=== PATIENT | female | born 1980 | race Caucasian/White ===

== ENCOUNTER 2022-12-18 11:36 | Outpatient (CLI) | payer BC, SELFPAY ==
[2022-12-18 21:46] LABS: Albumin* 4.2 g/dL (3.3-5.0)
[2022-12-18 21:47] LABS: Chloride* 106 mmol/L (96-114); Potassium* 4.4 mmol/L (3.6-5.1); Sodium* 139 mmol/L (135-149)
[2022-12-18 21:49] LABS: Aspartate Amino Transferase* 24 U/L (12-35); Bilirubin Total* 0.7 mg/dL (0.1-1.5); Carbon Dioxide* 27 mmol/L (20-32); Creatinine* 0.9 mg/dL (0.5-1.5); Estimated Glomerular Filt Rate 82 ml/min
[2022-12-18 21:50] LABS: Alanine Aminotransferase* 18 U/L (4-35); Alkaline Phosphatase* 62 U/L (40-150); Blood Urea Nitrogen* 16 mg/dL (5-24); Glucose* 81 mg/dL (60-115); Lipase* 128 U/L (23-300)
== END 2022-12-18 11:37 | disposition home or self-care (01) ==
PROVIDERS: PCP Physician Assistant Medical; Visit Provider Physician Assistant Medical
DX: R10.13 Epigastric pain (principal)
CPT/HCPCS: 80053; 83690

== ENCOUNTER 2023-07-13 09:02 | Outpatient (CLI) | payer BC, SELFPAY | END 2023-07-13 09:03 | disposition home or self-care (01) | LOC: NFLDREF 14:42 | PROVIDERS: PCP Physician Assistant Medical; Referring Provider Physician Assistant Medical; Visit Provider Physician Assistant Medical | DX: Z00.00 Encounter for general adult medical examination without abnormal findings (principal); Z13.6 Encounter for screening for cardiovascular disorders; Z13.29 Encounter for screening for other suspected endocrine disorder | CPT/HCPCS: 80053; 80061; 84443 ==

== ENCOUNTER 2023-07-15 10:32 | Outpatient (CLI) | payer BC, SELFPAY ==
[2023-07-15 22:51] LABS: Chlamydia DNA Amplified* NOT DETECTED (No Detected); GC DNA Amplified* NOT DETECTED (No Detected)
== END 2023-07-15 10:33 | disposition home or self-care (01) ==
LOC: LKVREF 10:33
PROVIDERS: PCP Physician Assistant Medical; Visit Provider Physician Assistant Medical
DX: Z11.3 Encounter for screening for infections with a predominantly sexual mode of transmission (principal)
CPT/HCPCS: 87491; 87591

== ENCOUNTER 2023-08-10 07:15 | Outpatient (CLI) | payer BC, SELFPAY ==
--- NOTE | 2023-08-10 07:15 | CRLHL7_ITS ---
For Patients: As a result of the Century Cures Act, medical imaging exams and procedure reports are released immediately into your electronic medical record. You may view this report before your referring provider. If you have questions, please contact your health care provider. INDICATION: irregular menses COMPARISON: none TECHNIQUE: 2D pichardo scale and color Doppler images were acquired of the pelvis using a transabdominal and transvaginal approach. FINDINGS: Sonographic images demonstrate a normal size and smooth outer contour of the uterus. Uterus measures 8.6 cm in length by 3.5 cm in AP diameter by 4.5 cm in transverse dimension. The myometrium has a minimally heterogeneous echotexture. The endometrial lining appears normal and measures 2 mm in composite thickness. The ovaries are not visualized. There are no suspicious fluid collections within the cul-de-sac. IMPRESSION: Endometrial thickness 2 millimeters. No uterine fibroid. Dictated by Chris Nash MD @ 08/10/2023 8:26:55 AM (Electronically Signed)
== END 2023-08-10 07:16 | disposition home or self-care (01) ==
LOC: US 07:16
PROVIDERS: PCP Physician Assistant Medical; Visit Provider Physician Assistant Medical
DX: N92.6 Irregular menstruation, unspecified (principal); R93.89 Abnormal findings on diagnostic imaging of other specified body structures
CPT/HCPCS: 76830; 76856

== ENCOUNTER 2024-06-15 11:48 | Outpatient (CLI) | payer BC, SELFPAY ==
--- OUTSIDE RECORDS SUMMARY | 2024-06-15 11:52 | XMS_ITS | Clinical Summary ---
Author Organization [facility] Address [address] [address] Phone Care Team Providers Care Stationary Engineer Apprentice Name Role Phone Elsewhere, Pcp Primary Care Provider Unavailabl e Allergies No known active allergies Medications Medication Sig Dispensed Refills Start Date End Date Status buPROPion XL (Wellbutrin XL) 150 MG 24 hour extended release tablet 06/22/2020 Active desogestrel-ethinyl estradiol (Apri) 0.15-30 MG-MCG oral tablet Daily 02/16/2019 Active escitalopram (Lexapro) 20 MG tablet Take 20 mg by mouth one time a day. 04/21/2020 Active propranolol (Inderal) 60 MG tablet propranolol 60 mg tablet Active SUMAtriptan (Imitrex) 100 MG tablet sumatriptan 100 mg tablet 02/16/2018 Active SUMAtriptan (Imitrex) 50 MG tablet sumatriptan 50 mg tablet Active predniSONE (Deltasone) 10 MG tablet Take 6 pills once daily in the morning with food for 5 days, then decrease by one pill every day until off 07/31/2022 Active almotriptan (Axert) 12.5 MG tablet TAKE 1 TABLET BY MOUTH AT ONSET OF HEADACHE MAY REPEAT IN 2 HOURS IF NEEDED 06/30/2022 Active famotidine (Pepcid) 20 MG tablet Take 1 Tablet by mouth two times a day. 62 Tablet 12/17/2022 Active Social History Tobacco Use Types Packs/Day Years Used Date Smoking Tobacco: Never Assessed Sex and Gender Information Value Date Recorded Sex Assigned at Not on file Gender Identity Not on file Sexual Orientation Not on file Last Filed Vital Signs Vital Sign Reading Time Taken Comments Blood Pressure 103/60 12/17/2022 4:20 PM SAMPLER PICKUP Pulse 70 12/17/2022 4:20 PM SAMPLER PICKUP Temperature 36.4 ??C (97.6 ??F) 12/17/2022 12:[address] Respiratory Rate 16 12/17/2022 4:20 PM SAMPLER PICKUP Oxygen Saturation 97% 12/17/2022 12:48 PM SAMPLER PICKUP Inhaled Oxygen Concentration - - Weight - - Height - - Body Mass Index - - Plan of Treatment Health Maintenance Due Date Last Done Comments Cervical Cancer Screening 1981 Last pap w/ HPV Testing 1981 Last pap w/o HPV Testing 1981 MAMMO,SCREEN 1981 Hepatitis B Vaccine (Standin g Order) (1 of 3 - 19+ 3-dose series) 2000 PERTUSSIS (Standing Order) 2000 TETANUS (Standing Order) 2000 Influenza Vaccine Seasonal (Standing Order) (Season Ended) 2024 HPV Vaccine (Standing Order) Aged Out No longer eligible based on patient's age to complete this topic Pneumococcal/PCV20 Vaccine: Pediatrics (2-5 yrs) and At-Risk Patients (6-64 yrs) (Standing Order) Aged Out No longer eligible b ased on patient's age to complete this topic Care Teams Stationary Engineer Apprentice Relationship Specialty Start Date End Date Elsewhere, Pcp PCP - General 12/17/22
== END 2024-06-15 11:49 | disposition home or self-care (01) ==
PROVIDERS: PCP Physician Assistant Medical; Visit Provider Physician Assistant Medical
DX: N92.6 Irregular menstruation, unspecified (principal); L65.9 Nonscarring hair loss, unspecified
CPT/HCPCS: 80053; 80061; 82306; 82670; 82728; 83001; 83002; 84403; 84443

== ENCOUNTER 2024-08-29 13:06 | Outpatient (CLI) | payer BC, SELFPAY ==
--- NOTE | 2024-08-29 13:00 | CRLHL7_ITS ---
For Patients: As a result of the Century Cures Act, medical imaging exams and procedure reports are released immediately into your electronic medical record. You may view this report before your referring provider. If you have questions, please contact your health care provider. INDICATION: Irregular menstruation COMPARISON: none TECHNIQUE: 2D pichardo scale and color Doppler images were acquired of the pelvis using a transabdominal and transvaginal approach. FINDINGS: Sonographic images demonstrate a normal size and smooth outer contour of the uterus. Uterus measures 7.8 cm in length by 4.1 cm in AP diameter by 4.8 cm in transverse dimension. The myometrium has a normal uniform echotexture. The endometrial lining measures 8.3 mm in composite thickness. The right ovary is not visualized and the left ovary measures 3.0 x 1.6 x 2.5 cm. The left ovary demonstrates normal arterial and venous blood flow on color Doppler analysis. There are no suspicious fluid collections within the cul-de-sac. IMPRESSION: Endometrial thickness 8.3 millimeters. No endometrial fluid. No uterine fibroid. Dictated by Chris Nash MD @ 08/30/2024 5:51:30 AM (Electronically Signed)
--- OUTSIDE RECORDS SUMMARY | 2024-08-29 13:08 | XMS_ITS | Clinical Summary ---
Author Organization [facility] Address [address] [address] Phone Care Team Providers Care Dealer Sales Rep Name Role Phone Elsewhere, Pcp Primary Care [...] Comments Blood Pressure 103/60 12/17/2022 4:20 PM STEEL HEATER Pulse 70 12/17/2022 4:20 PM STEEL HEATER Temperature 36.4 ??C (97.6 ??F) 12/17/2022 12:[address] Respiratory Rate 16 12/17/2022 4:20 PM STEEL HEATER Oxygen Saturation 97% 12/17/2022 12:48 PM STEEL HEATER Inhaled Oxygen Concentration - - Weight - [...] (Standing Order) 2000 TETANUS (Standing Order) 2000 COVID-19 Vaccine (2022-2 4 season) 2024 Influenza Vaccine Seasonal (Standing Order) (#1) 2024 HPV Vaccine (Standing Order) Aged Out No longer eligible based on patient's age to complete this topic Pneumococcal/PCV20 Vaccine: Pediatrics (2-5 yrs) and At-Risk Patients (6-64 yrs) (Standing Order) Aged Out No longer eligible b ased on patient's age to complete this topic Care Teams Dealer Sales Rep Relationship Specialty Start Date End Date Elsewhere, Pcp PCP - General 12/17/22
--- NOTE | 2024-08-29 14:00 | CRLHL7_ITS ---
For Patients: As a result of the Century Cures Act, medical imaging exams and procedure reports are released immediately into your electronic medical record. You may view this report before your referring provider. If you have questions, please contact your health care provider. BILATERAL SCREENING MAMMOGRAM WITH COMPUTER-AIDED DETECTION AND TOMOSYNTHESIS TECHNIQUE: CC and MLO views were obtained. These mammographic images have been obtained using full-field digital technique. These mammographic images were interpreted with the benefit of computer-aided detection. Breast Tomosynthesis was used in this interpretation. COMPARISON FILM: 02/03/22. FINDINGS: There are scattered areas of fibroglandular density. IMPRESSION: There is no radiographic evidence for malignancy. ASSESSMENT: BI-RADS Category 1: Negative RECOMMENDATION: Routine screening mammogram in 1 year. A lay language report of this examination will be provided to the patient. Chris Nash M.D. Diagnostic Radiologist [email or web address] SP/Dictated by: Chris Nash MD @ 09/02/2024 10:30:00 AM (Electronically Signed)
== END 2024-08-29 13:07 | disposition home or self-care (01) ==
LOC: US 13:06
PROVIDERS: PCP Physician Assistant Medical; Visit Provider Physician Assistant Medical
DX: Z12.31 Encounter for screening mammogram for malignant neoplasm of breast (principal); N92.6 Irregular menstruation, unspecified; R93.89 Abnormal findings on diagnostic imaging of other specified body structures; Z80.41 Family history of malignant neoplasm of ovary
CPT/HCPCS: 76830; 76856; 77063; 77067